=== PATIENT | male | born 1985 | race Caucasian/White ===

== ENCOUNTER → 2016-12-05 | Outpatient (CLI) | payer BC ==
--- NOTE | 2016-12-05 13:21 | Diagnostic Imaging Report ---
INDICATION: Low back pain EXAMINATION: Lumbar spine AP and lateral views of lumbar spine show normal vertebral body height and alignment. Disc spaces are well maintained. IMPRESSION: Negative lumbar spine. Dictated by: Dictated on workstation # [id number]
== END ==
LOC: RAD 12:30
PROVIDERS: ATTEND Family Medicine
DX: M54.5 Low back pain (principal)
CPT/HCPCS: 72100

== ENCOUNTER → 2016-12-27 | Outpatient (CLI) | payer BC ==
--- NOTE | 2016-12-27 18:57 | Diagnostic Imaging Report ---
PROCEDURE: MRI lumbar spine. TECHNIQUE: Multiplanar, multisequence MRI of the lumbar spine was performed without contrast. INDICATION: Back pain. The patient slipped and fell down on the floor. FINDINGS: There is satisfactory alignment of the posterior spinal line. There is slight straightening of the lordotic curvature which could be related to muscle spasm. The vertebral body heights are preserved. There is mild disc desiccation in the lower lumbar discs with minimal disc height loss at L4/5 level. There is mild marrow edema around the L4/5 and L5/S1 discs compatible with Modic type I reactive changes. The cauda equina and conus medullaris appear grossly unremarkable. T12/L1: No disc herniation, no spinal canal or foraminal stenosis. L1/2: No disc herniation, no spinal canal or foraminal stenosis. L2/3: No disc herniation, no spinal canal or foraminal stenosis. L3/4: No disc herniation. There is mild facet hypertrophy. No central canal, lateral recess, or foraminal stenosis. L4/5: There is a diffuse disc bulge and an annular tear seen posteriorly. There is mild facet and ligamentous hypertrophy. No central canal stenosis. There is moderate left lateral recess stenosis and minimal right lateral recess stenosis. The foramina demonstrate moderate stenosis on the left and hdil-jr-gqokweoz stenosis on the right side. L5/S1: There is a prominent central broad-based disc protrusion. No significant facet or ligamentous hypertrophy. No central canal stenosis. There is bilateral lateral recess stenosis, mild on the right side and moderate on the left side abutting the descending left S1 nerve root. The foramina demonstrate moderate stenosis bilaterally. IMPRESSION: 1. Lower lumbar spine degenerative changes. There is moderate left lateral recess stenosis at L4/5 and L5/S1 levels. 2. There is bilateral moderate foraminal stenosis at L5/S1. Dictated by: Dictated on workstation # [id number]
== END ==
LOC: RAD 13:17
PROVIDERS: ATTEND Family Medicine
DX: M47.816 Spondylosis without myelopathy or radiculopathy, lumbar region (principal); M48.061 Spinal stenosis, lumbar region without neurogenic claudication
CPT/HCPCS: 72148

== ENCOUNTER 2017-03-08 14:58 | Outpatient (RCR) | payer BC | END 2017-03-28 15:37 | disposition home or self-care (01) | PROVIDERS: ATTEND Pain Medicine Interventional Pain Medicine | DX: M51.16 Intervertebral disc disorders with radiculopathy, lumbar region (principal) ==

== ENCOUNTER 2017-11-14 14:21 | Outpatient (RCR) | payer BC | END 2017-12-05 15:16 | disposition home or self-care (01) | PROVIDERS: ATTEND Orthopaedic Surgery Orthopaedic Surgery of the Spine | DX: M54.5 Low back pain (principal); Z98.890 Other specified postprocedural states ==

== ENCOUNTER → 2019-01-02 | Outpatient (CLI) | payer BC, OTHER ==
--- NOTE | 2019-01-02 07:50 | Diagnostic Imaging Report ---
PROCEDURE: CT lumbar spine without contrast. TECHNIQUE: Multiple contiguous axial images were obtained through the lumbar spine without the use of intravenous contrast. Sagittal and coronal reformations were then performed. Auto Exposure Controls were utilized during the CT exam to meet ALARA standards for radiation dose reduction. INDICATION: Chronic low back pain Correlation is made to MRI of lumbar spine dated 12/27/2016. Lumbar spinal curvature and alignment are stable and unremarkable. Vertebral body heights and disc spaces are maintained. There has been interval performance of bilateral L5 laminectomy. There is continued diffuse bulging of the L4-L5 and L5-S1 discs although spinal canal is decompressed at these levels. No new disc herniation is identified. There is no evidence of fracture. No paraspinous hematoma or fluid collection is seen. IMPRESSION: Posterior decompression of thecal sac at L5 due to interval laminectomies. Diffuse bulging of L4-L5 and L5-S1 disc persist without evidence of new abnormality. Dictated by: Dictated on workstation # [id number]
== END ==
LOC: RAD 07:04
PROVIDERS: ATTEND Physician Assistant
DX: M51.17 Intervertebral disc disorders with radiculopathy, lumbosacral region (principal); M48.07 Spinal stenosis, lumbosacral region; Z98.890 Other specified postprocedural states
CPT/HCPCS: 72131

== ENCOUNTER 2022-01-12 23:54 | Emergency (ER) | payer OTHER ==
[~2022-01-12] VITALS: Ht 186 cm; Wt 139.0 kg
[2022-01-13 00:03] VITALS: BP 158/97
--- NOTE | 2022-01-13 00:29 | ED Integumentary General ---
General Chief Complaint: Bite-Animal/Human/Insect Stated Complaint: LEFT HAND INJURY Nursing Triage Note: Pt presents with laceration to L middle finger secondary to a cat bite. Cat does belong the the patient, however, they are unaware of the cat's vaccination status. History of Present Illness Date Seen by Provider: Jan 13, 2022 Time Seen by Provider: 00:24 Initial Comments 36 yo male with cat bite or scratch. has laceration on left finger somers surface. unknown vaccine status as far as rabies. states his dog spooked it. Allergies and Home Medications Patient Home Medication List Home Medication List Reviewed: Yes Amoxicillin/Potassium Clav (Amox Tr-K Clv 875-125 mg Tab) 875 Mg-125 Mg Tablet, 1 EACH PO BID Prescribed by: Obinna Márquez on 01/13/22 011 Review of Systems Review of Systems Constitutional: see HPI Past Jvhkddp-Omcnvs-Fhjnpc Hx Patient Social History Tobacco Use?: No Physical Exam Vital Signs Vital Signs - First Documented 01/13/22 01/13/22 00:03 01:19 Temp 36.7 Pulse 83 Resp 18 B/P (MAP) 158/97 (117) Pulse Ox 97 O2 Delivery Room Air Capillary Refill : Less Than 3 Seconds General Appearance: WD/WN, no apparent distress Skin: normal color Skin Problem Location: upper extremities Skin Problem Character: other (laceration left 4th digit. ) Procedures/Interventions Wound Location: Upper Extremities Wound Length (cm): 1.5 Wound's Depth, Shape: linear Wound Explored: no foreign body removed Betadine Prep?: Yes Anesthesia: 1% Lidocaine Wound Debrided: minimal Suture: Ethlion Suture Size: 4-0 Number of Sutures: 5 Layer Closure?: 1 Progress 5 single interrupted sutures placed. wound edges approximated well. some oozing of blood. wound did not reopen. bandaged placed. Progress/Results/Core Measures Results/Orders Vital Signs/I&O 01/13/22 01/13/22 00:03 01:19 Temp 36.7 Pulse 83 80 Resp 18 18 B/P (MAP) 158/97 (117) Pulse Ox 97 O2 Delivery Room Air Blood Pressure Mean: 117 Progress Progress Note : Time: 01:06 Progress Note Patient tolerated procedure well. Departure Impression Primary Impression: Cat bite Qualified Codes: W55.01XA - Bitten by cat, initial encounter Additional Impression: Laceration of finger of left hand Qualified Codes: S61.215A - Laceration without foreign body of left ring finger without damage to nail, initial encounter Disposition: HOME, SELF-CARE Condition: Stable Departure-Patient Inst. Decision time for Depature: 01:07 Referrals: NO,LOCAL PHYSICIAN (PCP/Family) Primary Care Physician Patient Instructions: Laceration Repair With Stitches ED, Animal Bites (DC) Add. Discharge Instructions: keep wound clean and covered with antibiotic ointment and bandage. follow up in 7-10 days to get stitches out. quarantine cat for 10 days. take augmentin twice daily x 10 days. All discharge instructions reviewed with patient and/or family. Voiced unde rstanding. Scripts Amoxicillin/Potassium Clav (Amox Tr-K Clv 875-125 mg Tab) 875 Mg-125 Mg Tablet 1 EACH PO BID for 10 Days, #20 TAB 0 Refills Prov: OBINNA MÁRQUEZ MD 01/13/22 OBINNA MÁRQUEZ MD Jan 13, 2022 00:29
[2022-01-13] MEDS ORDERED: AMOX1TAB12 PO (01:11)
== END 2022-01-13 01:19 | disposition home or self-care (01) ==
LOC: EDUNIT# 23:54 → ER FS 23:58
DX: S61.215A Laceration without foreign body of left ring finger without damage to nail, initial encounter (principal); Z28.310 Unvaccinated for COVID-19; W55.01XA Bitten by cat, initial encounter
CPT/HCPCS: 12001; 12042

== ENCOUNTER 2022-09-11 00:14 | Emergency (ER) | payer OTHER ==
[~2022-09-11] VITALS: Ht 185 cm; Wt 128.8 kg
[~2022-09-11 00:14] MED LIST: AMOX1TAB12 PO
[2022-09-11] MEDS ORDERED: morphine INJ 10 MG/ML 1ML (SYR OR VIAL) IVP STA (00:32)
[2022-09-11] MEDS ORDERED: IOHEXOL 350 MG/ML 100 ML (OMNIPAQUE 350) VIAL IV ONE (00:45)
[2022-09-11] MEDS ORDERED: CATHETER FLUSH 10 ML SYR IV PRN (00:45)
[2022-09-11] MEDS ORDERED: HOLD METFORMIN - RECEIVED CONTRAST 20 ML VIAL IV SCH (00:45)
[2022-09-11] MEDS ORDERED: cefTRIAXone IV/IM 1,000 MG in NS (IVPB) 50 ML IV ONE (00:45)
[2022-09-11] MEDS ORDERED: NS 100 ML (IVPB) BAG IV ONE (00:45)
[2022-09-11] MEDS ORDERED: NS IV 1000 ML 1,000 ML IV SCH (00:45)
[2022-09-11 00:53] LABS: MEAN PLATELET VOLUME 10.1 fL (9.0-12.2); WHITE BLOOD COUNT 10.7 10^3/uL (4.3-11.0)
[2022-09-11 01:18] LABS: ALANINE AMINOTRANSFERASE 36 U/L (0-55); ALBUMIN 4.2 GM/DL (3.2-4.5); ALKALINE PHOSPHATASE 89 U/L (40-136); BILIRUBIN,TOTAL 0.6 MG/DL (0.1-1.0); BUN/CREATININE RATIO 16; CALCIUM 9.4 MG/DL (8.5-10.1); CARBON DIOXIDE 25 MMOL/L (21-32); CHLORIDE 106 MMOL/L (98-107); CREATININE SERUM 0.97 MG/DL (0.60-1.30); GFR ESTIMATED 102; GLUCOSE 105 MG/DL (70-105); LIPASE 27 U/L (8-78); SODIUM 141 MMOL/L (135-145); TOTAL PROTEIN 7.2 GM/DL (6.4-8.2)
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
[2022-09-11] MEDS ORDERED: HYDROmorphone 2 MG/ML VIAL (DILAUDID) IV ONE (02:00)
[2022-09-11] MEDS ORDERED: LIDOCAINE 1% INJ 20 ML VIAL INJ ONE (02:00)
[2022-09-11] MEDS ORDERED: ACHD5005 PO (02:49)
[2022-09-11] MEDS ORDERED: CEPH500T PO (02:49)
[2022-09-11 03:00] VITALS: BP 114/60
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
== END 2022-09-11 03:00 | disposition home or self-care (01) ==
LOC: ER FS 00:16
DX: S81.011A Laceration without foreign body, right knee, initial encounter (principal); S20.211A Contusion of right front wall of thorax, initial encounter; S30.1XXA Contusion of abdominal wall, initial encounter; S60.221A Contusion of right hand, initial encounter; S90.31XA Contusion of right foot, initial encounter; S50.01XA Contusion of right elbow, initial encounter; Z28.310 Unvaccinated for COVID-19; V20.49XA Other motorcycle driver injured in collision with pedestrian or animal in traffic accident, initial encounter; Y93.55 Activity, bike riding; Y92.410 Unspecified street and highway as the place of occurrence of the external cause
CPT/HCPCS: 12002; 36415; 70450; 71260; 72125; 73562; 73610; 73620; 74177; 80053; 83690; 85027; 93041; 99284; G0480; 80320

== ENCOUNTER 2022-09-22 14:47 | Emergency (ER) | payer OTHER ==
[~2022-09-22] VITALS: Ht 185.5 cm; Wt 138.7 kg
[~2022-09-22 14:47] MED LIST changes: +ACHD5005 PO; +CEPH500T PO
[2022-09-22 14:56] VITALS: BP 169/96
--- NOTE | 2022-09-22 15:06 | ED Suture Removal/Wound Check ---
Suture/Wound Re-check Suture Removal/Wound Recheck : Suture Removal/Wound Recheck: Sutures removed by RN Progress Stitches removed intact without complication. there were 3 areas where he had a small amount of bleeding after removal of stitch as the skin had started to grow over the knot. The wound felt stable and did not have any give or sign of separation with stress on the wound. It was moist with vaseline but did not have any purulent drainage. Counseled on follow up and return precautions as well as general wound care. General Appearance: WD/WN, no apparent distress Physical Exam Vital Signs Vital Signs - First Documented 09/22/22 14:56 Temp 36.5 Pulse 87 Resp 18 B/P (MAP) 169/96 Pulse Ox 99 O2 Delivery Room Air Capillary Refill : General Appearance: WD/WN, no apparent distress Cardiovascular: normal peripheral pulses Extremities: normal range of motion, no calf tenderness, normal capillary refill, inflammation (some inflammation to the abrasions and wounds. The skin has started to grow over the stitches so they had to be pulled up to get them removed. He had small amount of bleeding with removal of 3 of the stitches. The wound was moist with vaseline but no purulent drainage and no erythema beyond the small amount of the wound margins with healing process. ) Skin: warm/dry Skin Problem Location: lower extremities (right knee) Skin Problem Character: erythema (faint erythema around wound edges from healing process), tenderness, thickening Departure Impression Primary Impression: Encounter for removal of sutures Disposition: 01 HOME, SELF-CARE Condition: Improved Departure-Patient Inst. Decision time for Depature: 15:04 Referrals: [facility] Patient Instructions: Wound Care ED, SUTURE REMOVAL - UNCOMPLICATED Add. Discharge Instructions: Keep wound clean and dry. May leave it uncovered as long as it is not getting dirty or rubbing on clothes. When at work or when it might get dirty keep it covered with a clean dry dressing or you could use a little triple antibiotic or bacitracin with the dressing If you have redness streaking up the leg or fever over 101 F then get rechecked as you may need more antibiotics by mouth if that happens. All discharge instructions reviewed with patient and/or family. Voiced understanding. PEDRO HOSKINS MD Sep 22, 2022 15:06
== END 2022-09-22 15:07 | disposition home or self-care (01) ==
LOC: EDUNIT# 14:47 → ER FS 14:50
DX: Z48.02 Encounter for removal of sutures (principal)